=== PATIENT | female | born 1950 | race Caucasian/White ===

== ENCOUNTER 2017-01-02 12:31 | Inpatient (IN) | payer BC, MEDICARE ==
[~2017-01-02 12:31] MED LIST: ALDOMET250 MG PO; ESTRADERM0.1 MG/24 TD; FOSAMAX70 MG PO; LUNESTA3 M1 PO; NORCO 5/325 TAB1 TAB PO; SINEMET PO; SYNTHROID PO; SYNTHROID50 MC1 PO; WELLBUTRIN XL300 M3 PO
[2017-01-02] MEDS ORDERED: COLACE100 M1 PO (12:45)
[2017-01-02] MEDS ORDERED: AMITRIPTYLINE H50 M1 PO (12:45)
[2017-01-02] MEDS ORDERED: NORVASC5 M2 PO (12:45)
[2017-01-02] MEDS ORDERED: ATIVAN1 M2 PO (12:46)
[2017-01-02 13:16] LABS: BASO % 0.1 % (0-2); EOS % 2.8 % (0-7); EOSINOPHIL ABSOLUTE COUNT 0.2 tho/cmm (0.0-0.7); HCT-HEMATOCRIT 37.4 % (34.0-49.0); HGB-HEMOGLOBIN 12.1 gm/dl (12.0-15.5); IMMATURE GRANULOCYTES ABSOLUTE 0.01 tho/cmm (0-0.03); IMMATURE GRANULOCYTES PERCENT 0.1 % (0-0.3); LYMPH % 11.1 % (20-45); LYMPH ABSOLUTE COUNT 0.9 tho/cmm (0.8-4.5); MCH (MEAN CORPUSCULAR HGB) 29.2 pg (28.0-32.0); MCHC MEAN CORPUSCULAR HGB CONC 32.4 % (32.0-36.0); MCV (MEAN CELL VOLUME) 90.1 fl (82.0-96.0); MEAN PLATELET VOLUME 10.7 cmc (9.4-12.4); MONO % 8.7 % (0-12); MONOCYTE ABSOLUTE COUNT 0.7 tho/cmm (0.0-1.2); NEUTROPHIL ABSOLUTE COUNT 6.3 tho/cmm (1.6-8.0); NEUTROPHIL-AUTOMATED 6.3 tho/cmm (1.6-8.0); NEUTROPHILS % 77.2 % (40-80); PLATELET COUNT 242 tho/cmm (150-450); RED BLOOD COUNT 4.15 mil/cmm (4.00-5.20); RED CELL DISTRIBUTION WIDTH 13.3 % (12.4-16.4); WHITE BLOOD COUNT 8.1 tho/cmm (4.0-10.0)
[2017-01-02 13:29] LABS: ALB/GLOB RATIO 0.9 (0.8-2.0); ALBUMIN 3.2 g/dl (3.5-5.0); ALCOHOL (ETOH) <10 mg/dl (<10); ALKALINE PHOSPHATASE 65 U/L (33-138); ANION GAP 10 mmol/L (0-20); AST/SGOT 15 U/L (10-40); BILIRUBIN,TOTAL 0.3 mg/dl (0-1.5); BLOOD UREA NITROGEN 17 mg/dl (6-24); CALCIUM 8.1 mg/dl (8.5-10.5); CARBON DIOXIDE-VENOUS 26 mmol/L (22-32); CHLORIDE 111 mmol/l (96-110); CREATININE 0.86 mg/dl (0.50-1.10); GLUCOSE 87 mg/dL (70-110); SODIUM 143 mmol/L (135-145); eGFR VALUE FOR BLACK 81 mL/Min
[2017-01-02 13:37] LABS: URINE APPEARANCE CLEAR; URINE BILIRUBIN NEGATIVE (NEG); URINE BLOOD NEGATIVE (NEG); URINE COLOR YELLOW; URINE GLUCOSE (UA) NEGATIVE (NEG); URINE KETONE SMALL (NEG); URINE LEUKOCYTE ESTERASE NEGATIVE (NEG); URINE NITRITE NEGATIVE (NEG); URINE PH 6.5 (5.0-8.0); URINE PROTEIN NEGATIVE (NEG)
[2017-01-02 13:38] LABS: ALT/SGPT <10 U/L (12-78)
[2017-01-03 06:05] LABS: CHOLESTEROL 111 mg/dl (120-200); HDL CHOLESTEROL 39 mg/dl (40-60); LDL CHOLESTEROL 58 mg/dl (0-99); TRIGLYCERIDES 74 mg/dl (<149); VLDL 15 mg/dl (0-30)
[2017-01-03 10:30] LABS: PHOSPHOROUS 3.2 mg/dl (2.5-4.9)
[2017-01-04] MEDS ORDERED: KEPPRA250 M1 PO ×2 (13:00→14:59)
== END 2017-01-04 16:06 | disposition home health service (06) | DRG 85 ==
LOC: EDMED 12:31 → EMR2 15:17 → 5EB 16:17
PROVIDERS: Emergency Medicine; Nurse Practitioner Acute Care; Psychiatry & Neurology Neurology; ADMIT Family Medicine
DX: S06.5X0A Traumatic subdural hemorrhage without loss of consciousness, initial encounter (principal); G92 Toxic encephalopathy; G23.1 Progressive supranuclear ophthalmoplegia [Steele-Richardson-Olszewski]; R56.9 Unspecified convulsions; R47.01 Aphasia; Z99.3 Dependence on wheelchair; G47.00 Insomnia, unspecified; T42.6X1A Poisoning by other antiepileptic and sedative-hypnotic drugs, accidental (unintentional), initial encounter; Z66 Do not resuscitate; Z91.81 History of falling; I10 Essential (primary) hypertension; E03.9 Hypothyroidism, unspecified; W19.XXXA Unspecified fall, initial encounter; Y92.019 Unspecified place in single-family (private) house as the place of occurrence of the external cause
CPT/HCPCS: A9577; G0480; G8978-GP-CL; G8979-GP-CK; G8996-GN-CK; G8997-GN-CK; G8998-GN-CK; J1650; J7030; P9612

== ENCOUNTER 2017-02-03 17:23 | Emergency (ER) | payer BC, MEDICARE ==
[~2017-02-03 17:23] MED LIST changes: +AMITRIPTYLINE H50 M1 PO; +ATIVAN1 M2 PO; +COLACE100 M1 PO; +KEPPRA250 M1 PO; +NORVASC5 M2 PO
[2017-02-03] MEDS ORDERED: SINEMET 25-1001 EAC1 PO (17:45)
[2017-02-03 18:16] LABS: BASO % 0.2 % (0-2); EOS % 2.9 % (0-7); EOSINOPHIL ABSOLUTE COUNT 0.2 tho/cmm (0.0-0.7); HCT-HEMATOCRIT 37.4 % (34.0-49.0); IMMATURE GRANULOCYTES ABSOLUTE 0.01 tho/cmm (0-0.03); IMMATURE GRANULOCYTES PERCENT 0.2 % (0-0.3); LYMPH % 16.5 % (20-45); MCH (MEAN CORPUSCULAR HGB) 28.4 pg (28.0-32.0); MCHC MEAN CORPUSCULAR HGB CONC 32.1 % (32.0-36.0); MCV (MEAN CELL VOLUME) 88.6 fl (82.0-96.0); MEAN PLATELET VOLUME 9.8 cmc (9.4-12.4); MONO % 8.1 % (0-12); MONOCYTE ABSOLUTE COUNT 0.5 tho/cmm (0.0-1.2); NEUTROPHIL ABSOLUTE COUNT 4.5 tho/cmm (1.6-8.0); NEUTROPHIL-AUTOMATED 4.5 tho/cmm (1.6-8.0); NEUTROPHILS % 72.1 % (40-80); PLATELET COUNT 369 tho/cmm (150-450); RED BLOOD COUNT 4.22 mil/cmm (4.00-5.20); WHITE BLOOD COUNT 6.2 tho/cmm (4.0-10.0)
[2017-02-03 18:39] LABS: ALB/GLOB RATIO 0.7 (0.8-2.0); ALBUMIN 3.4 g/dl (3.5-5.0); ALKALINE PHOSPHATASE 68 U/L (33-138); ANION GAP 15 mmol/L (0-20); AST/SGOT 14 U/L (10-40); BLOOD UREA NITROGEN 16 mg/dl (6-24); CARBON DIOXIDE-VENOUS 25 mmol/L (22-32); CHLORIDE 105 mmol/l (96-110); CREATININE 0.75 mg/dl (0.50-1.10); GLUCOSE 91 mg/dL (70-110); POTASSIUM 3.8 mmol/L (3.7-5.1); SODIUM 141 mmol/L (135-145); eGFR VALUE FOR BLACK >90 mL/Min
[2017-02-03 18:51] LABS: BILIRUBIN,TOTAL 0.3 mg/dl (0-1.5)
[2017-02-03] MEDS ORDERED: AZITHROMYCIN250 M1 PO (18:54)
[2017-02-03 18:55] LABS: ALT/SGPT 9 U/L (12-78)
== END 2017-02-03 19:12 ==
LOC: EDMED 17:23
PROVIDERS: Nurse Practitioner Family
DX: J18.9 Pneumonia, unspecified organism (principal); Z86.73 Personal history of transient ischemic attack (TIA), and cerebral infarction without residual deficits; Z90.89 Acquired absence of other organs; Z90.710 Acquired absence of both cervix and uterus; Z79.899 Other long term (current) drug therapy